=== PATIENT | female | born 1980 | race Caucasian/White ===

== ENCOUNTER → 2016-11-18 | Outpatient (CLI) | payer BC ==
[~2016-11-18] MED LIST: CALCTAB5 PO; GABA-112 PO; NYSTCRE32 TOP; PRENTAB26 PO
[2016-11-18 13:01] LABS: BASO % 0.4 %; BASO ABS # 0.03 K/uL (0-0.2); COMPLETE YES; EOS % 1.4 %; HEMATOCRIT 38.7 % (37-47); IG% 0.3 %; LYMPH % 31.3 %; LYMPH ABS # 2.31 K/uL (1.2-3.4); MEAN CELL VOLUME 81.3 fL (80-100); MEAN CORPUSCULAR HEMOGLOBIN 27.1 pg (25-34); MEAN CORPUSCULAR HGB CONC 33.3 g/dl (32-36); MEAN PLATELET VOLUME 9.4 fL (7.4-10.4); MONO % 5.7 %; NEUT % 60.9 %; PLATELET COUNT 268 K/uL (130-400); RED BLOOD COUNT 4.76 M/uL (4.2-5.4); WHITE BLOOD COUNT 7.37 K/uL (4.8-10.8)
[2016-11-18 13:26] LABS: ALT/SGPT 20 U/L (12-78); AST/SGOT 12 U/L (15-37); BLOOD UREA NITROGEN 9 mg/dl (7-18); BUN/CREATININE RATIO 16.2 (10-20); CALCIUM 8.8 mg/dl (8.5-10.1); CARBON DIOXIDE 27 mmol/L (21-32); CHLORIDE 106 mmol/L (98-107); CREATININE 0.58 mg/dl (0.60-1.20); GLUCOSE 89 mg/dl (70-99); POTASSIUM 3.9 mmol/L (3.5-5.1); SODIUM 142 mmol/L (136-145)
[2016-11-18 13:37] LABS: ALKALINE PHOSPHATASE 109 U/L (45-117); CHOLESTEROL 184 mg/dl (0-200); CHOLESTEROL/HDL RATIO 2.7; HDL CHOLESTEROL 68 mg/dl; LDL CHOLESTEROL CALCULATED 102 mg/dl; TRIGLYCERIDES 69 mg/dl (0-150); VERY LOW DENSITY LIPOPROT CALC 14 mg/dl
[2016-11-18 13:47] LABS: URINE APPEARANCE CLEAR (CLEAR); URINE BILIRUBIN NEG (NEG); URINE COLOR YELLOW; URINE NITRITE NEG (NEG); URINE SPECIFIC GRAVITY 1.018 (1.000-1.030); UROBILINOGEN NEG (NEG)
[2016-11-18 13:57] LABS: MANUAL MICROSCOPIC REQUIRED? NO; REVIEW REQ? NO
== END | disposition home or self-care (01) ==
LOC: C.LABMFLN 10:35
PROVIDERS: ATTEND Family Medicine
DX: Z00.00 Encounter for general adult medical examination without abnormal findings (principal); O24.410 Gestational diabetes mellitus in pregnancy, diet controlled; Z13.220 Encounter for screening for lipoid disorders; Z13.29 Encounter for screening for other suspected endocrine disorder; Z3A.00 Weeks of gestation of pregnancy not specified

== ENCOUNTER → 2017-03-10 | Outpatient (CLI) | payer BC | END | disposition home or self-care (01) | LOC: C.PAPS 15:18 | PROVIDERS: ATTEND Physician Assistant | DX: Z01.419 Encounter for gynecological examination (general) (routine) without abnormal findings (principal) ==

== ENCOUNTER → 2017-07-23 | Outpatient (CLI) | payer BC ==
[~2017-07-23] MED LIST changes: -NYSTCRE32 TOP
[2017-07-23 10:44] LABS: HEMATOCRIT 39.5 % (37-47); MEAN CELL VOLUME 82.6 fL (80-100); MEAN CORPUSCULAR HEMOGLOBIN 27.6 pg (25-34); MEAN CORPUSCULAR HGB CONC 33.4 g/dl (32-36); PLATELET COUNT 257 K/uL (130-400); RED BLOOD COUNT 4.78 M/uL (4.2-5.4); WHITE BLOOD COUNT 10.78 K/uL (4.8-10.8)
== END | disposition home or self-care (01) ==
LOC: C.LAB1850 10:26
PROVIDERS: ATTEND Physician Assistant
DX: N93.9 Abnormal uterine and vaginal bleeding, unspecified (principal)

== ENCOUNTER → 2017-07-23 | Outpatient (CLI) | payer BC ==
--- NOTE | 2017-07-23 14:18 | DIAGNOSTIC IMAGING REPORT ---
PELVIC COMPLETE NON OB HISTORY: 36 years-old Female ABN VAGINAL BLEEDING acute abnormal vaginal bleeding. COMPARISON: None available. TECHNIQUE: Multiple real-time sonographic images of the deep pelvic structures were obtained transabdominal and transvaginally assessing grayscale appearance, color and spectral flow. FINDINGS: TRANSABDOMINAL: Retroflexed uterus measures 8.3 x 4.2 x 4.5 cm. Endometrium measures 0.6 cm. The right ovary measures 3.7 x 2.7 x 3.1 cm. Dominant follicle within the right ovary is seen, 2.7 x 2.0 x 2.5 cm. Arterial inflow is documented within the right ovary. Left ovary measures 2.0 1.8 x 1.8 cm with arterial inflow documented. TRANSVAGINAL: Retroflexed uterus is noted, 7.1 x 4.4 x 4.9 cm. Endometrium measures 0.6 cm. Left ovary measures 2.4 x 1.4 x 2.1 cm with arterial inflow and venous outflow documented. Right ovary measures 3.7 x 2.7 x 3.1 cm with dominant follicle noted measuring up to 2.7 cm. Arterial inflow and venous outflow seen within the right ovary. No significant free pelvic fluid. IMPRESSION: 1. Dominant follicle of the right ovary, 2.7 cm. There is no evidence of ovarian torsion. 2. Unremarkable sonographic appearance of the uterus and endometrium. The above report was generated using voice recognition software. It may contain grammatical, syntax or spelling errors. Electronically signed by: Jero Thomas M.D. 07/23/2017 2:16 PM Dictated Date/Time: 07/23/2017 2:11 PM
== END | disposition home or self-care (01) ==
LOC: C.ULTR 13:07
PROVIDERS: ATTEND Physician Assistant
DX: N93.9 Abnormal uterine and vaginal bleeding, unspecified (principal); N83.8 Other noninflammatory disorders of ovary, fallopian tube and broad ligament

== ENCOUNTER → 2017-07-28 | Outpatient (CLI) | payer BC | END | disposition home or self-care (01) | LOC: C.PATHSPEC 17:14 | PROVIDERS: ATTEND Obstetrics & Gynecology | DX: N93.9 Abnormal uterine and vaginal bleeding, unspecified (principal) ==

== ENCOUNTER → 2017-10-06 | Outpatient (CLI) | payer OTHER ==
[~2017-10-06] MED LIST changes: +BACL10TA PO; +GADAVIST IV PRN
--- NOTE | 2017-10-06 16:22 | DIAGNOSTIC IMAGING REPORT ---
MRI OF THE BRACHIAL PLEXUS COMBO CLINICAL HISTORY: Right shoulder injury. Right shoulder pain. COMPARISON STUDY: MRI of the right shoulder dated 02/26/2017. MRI of the cervical spine dated 03/31/2017. TECHNIQUE: MRI of the brachioplexus is performed utilizing various T1 and T2-weighted sequences in the axial, sagittal, and coronal planes. Contrast-enhanced sequences were acquired following the IV administration of 8.5 cc of Gadavist. FINDINGS: The brachial plexus is normal as visualized bilaterally. No abnormal enhancement, edema or mass lesion is seen. Shotty cervical lymph nodes are incidentally noted. The thyroid gland and the salivary glands are normal as visualized. The imaged brain parenchyma is within normal limits. The regional musculature is normal in bulk and signal intensity. The cervical spine appears intact as imaged. Posterior disc bulges at C5-C6 and C6-C7 eccentric to the left are similar to previous. IMPRESSION: Unremarkable MRI assessment of the brachial plexus. Dictated: 10/06/2017 3:08 PM Transcribed: 10/06/2017 4:21 PM Sandy Electronically signed by: Rian Little M.D. 10/06/2017 4:44 PM Dictated Date/Time: 10/06/2017 3:08 PM
== END | disposition home or self-care (01) ==
LOC: C.MRIBC 13:47
PROVIDERS: ATTEND Psychiatry & Neurology Neurology
DX: G54.0 Brachial plexus disorders (principal)

== ENCOUNTER → 2018-02-25 | Outpatient (CLI) | payer OTHER ==
[~2018-02-25] MED LIST changes: -GADAVIST IV PRN
== END | disposition home or self-care (01) ==
LOC: C.LABMFLN 15:27
PROVIDERS: ATTEND Physician Assistant
DX: L65.9 Nonscarring hair loss, unspecified (principal)

== ENCOUNTER 2024-02-22 08:26 | Observation (INO) ==
--- NOTE | 2024-02-02 13:45 | PAT Medication Instructions ---
Medication Instructions Date of Service February 02, 2024 Home Medications Medication Instructions Recorded albuterol sulfate 90 mcg/actuation 2 inh inhalation QID PRN shortness 02/24/23 aerosol inhaler of breath or wheezing #8.5 grams CPAP Machine #1 ea 06/02/23 buspirone 5 mg tablet 5 mg PO BID #60 tabs 11/20/23 carvedilol 3.125 mg tablet 3.125 mg PO BID #60 tabs 11/20/23 furosemide 20 mg tablet 40 mg (2 x 20 mg) PO QAM #60 tabs 01/22/24 gabapentin 300 mg capsule 300 mg PO TID #90 caps 01/22/24 loratadine 10 mg tablet (Claritin) 10 mg PO QAM ascorbic acid (vitamin C) 500 mg capsule 500 mg PO QAM calcium carbonate 500 mg PO QAM multivitamin 1 tab PO QAM albuterol sulfate 90 mcg/actuation aerosol inhaler 2 inh inhalation QID PRN buspirone 5 mg tablet 5 mg PO BID carvedilol 3.125 mg tablet 3.125 mg PO BID furosemide 20 mg tablet 40 mg (2 x 20 mg) PO QAM gabapentin 300 mg capsule 300 mg PO TID cholecalciferol (vitamin D3) 125 mcg (5,000 unit) tablet (Vitamin D3) 125 mcg PO QPM citalopram 10 mg tablet 10 mg PO QPM meloxicam 15 mg tablet 15 mg PO QAM omeprazole 20 mg capsule,delayed release 20 mg PO QAM ASK your surgeon for instructions meloxicam 15 mg tablet 15 mg PO QAM DO NOT take the morning of surgery loratadine 10 mg tablet (Claritin) 10 mg PO QAM ascorbic acid (vitamin C) 500 mg capsule 500 mg PO QAM calcium carbonate 500 mg PO QAM multivitamin 1 tab PO QAM furosemide 20 mg tablet 40 mg (2 x 20 mg) PO QAM Take morning of surgery With a small sip of water, OTHERWISE NOTHING TO EAT OR DRINK AFTER MIDNIGHT: albuterol sulfate 90 mcg/actuation aerosol inhaler 2 inh inhalation QID PRN(use if needed; please bring with you to hospital day of surgery if possible) buspirone 5 mg tablet 5 mg PO BID carvedilol 3.125 mg tablet 3.125 mg PO BID gabapentin 300 mg capsule 300 mg PO TID omeprazole 20 mg capsule,delayed release 20 mg PO QAM Take evening before surgery albuterol sulfate 90 mcg/actuation aerosol inhaler 2 inh inhalation QID PRN(if needed) buspirone 5 mg tablet 5 mg PO BID carvedilol 3.125 mg tablet 3.125 mg PO BID gabapentin 300 mg capsule 300 mg PO TID cholecalciferol Vitamin D3 125 mcg (5,000 unit) tablet (Vitamin D3) 125 mcg PO QPM citalopram 10 mg tablet 10 mg PO QPM Other Notes If you have any questions please call us at [phone] or [phone] or [phone] or [phone]
--- NOTE | 2024-02-10 14:32 | Anesthesiology Consultation ---
Date of Service February 10, 2024 Assessment & Plan (1) Encounter for pre-operative examination: - Hx difficult intubation: * Laparoscopic Mercedez 01/04/2020. Grade 4 view with DL, glidescope 3, ETT 7.5. "Extreme anterior small mouth opening, narrow space." * Laparoscopic Tubal Sterilization Bilateral (03/21/2022): Grade 1 view with Glidescope#3, ETT 7.0 at [facility], [place] - Infectious disease screening: Per assessment on 02/10/24: No known infectious disease contacts or current infectious disease symptoms. No noted recent Covid positive test result. - Cardiology note (12/07/23): "Low risk.. Patient is cleared for scheduled surgery" - PCP visit (02/12/24): "Labs, EKG, and CXR reviewed. Pt will repeat PTT as slightly elevated, previously normal. If remains elevated, will reach out to kitchen food assembler. Pt was seen with cardiology in November and acquired clearance. She has upcoming visit with pulmonary--will await clearance." - Pulmonary visit (02/18/24): "Continue with the use of as needed albuterol. Symptoms are very well-controlled. She has had a decline in her FEV1 and FVC which may be weight related and due to loss of muscle tone related to nerve impingement from her cervical disc compression. I believe she is low risk patient from a pulmonary perspective to undergo spine surgery on Thursday. No further testing or interventions required prior to surgery. I will order for repeat PFT in approximately 6 months." - Isolated, elevated PTT: Preop labs note elevated PTT at 34. PCP recommended repeat level to determine if anything further needed from their perspective. Received workload response from PCP that they have reached out to patient's kitchen food assembler in regards to elevated PTT. Heme/onc note/response (02/19/24): "Review of patients most recent coagulation studies (02/10/2024 and 02/12/2024) shows minimally elevated aPTT at 34/33. Previous aPTT 01/10/2020 was 30.5. This represents a <1.5% change in baseline aPTT. All other coag studies within normal.. Overall, patient does not have elevated risk of excessive surgical bleeding related to her past medical history and recent coagulation studies." Chart Review Chart Review: Acceptable Risk for Surgery and Patient seen in Pre Admission Testing Teaching & Discussion Pre-Anesthesia Teaching/Discussion Notes: Instructed NPO after midnight before surgery,except medications with 15 cc of water. Medication instructions provided according to the PAT guidelines. History Surgery Operation Date: 02/22/24 10:05 Proposed Procedures p C5-C6 Anterior Cervical Discectomy and Fusion, Spinal Cord Monitoring - Teofilo Granados DO Height/Weight Height: 5 ft 5 in Weight: 107.4 kg Allergies Allergy/AdvReac Type Severity Reaction Status Date / Time adhesive Allergy Severe skin Verified 02/16/24 11:08 redness and blisters duloxetine [From Cymbalta] Allergy Severe hives and Verified 02/16/24 11:08 rash fluconazole [From Diflucan] Allergy Severe Hives Verified 02/16/24 11:08 sulfamethoxazole Allergy Intermediate Hives Verified 02/16/24 11:08 [From Bactrim] trimethoprim [From Bactrim] Allergy Intermediate Hives Verified 02/16/24 11:08 cefuroxime AdvReac Unknown Vomiting Verified 02/16/24 11:08 Cephalosporins AdvReac Unknown Vomiting Verified 02/16/24 11:08 Medications Home Medications Medication Instructions Recorded Confirmed Last Taken loratadine 10 mg tablet (Claritin) 10 mg PO QAM 12/10/20 02/16/24 10/07/22 08:30 ascorbic acid (vitamin C) 500 mg 500 mg PO QAM 03/18/22 02/16/24 10/05/22 capsule calcium carbonate 500 mg PO QAM 03/18/22 02/16/24 10/05/22 multivitamin 1 tab PO QAM 03/18/22 02/16/24 10/05/22 albuterol sulfate 90 mcg/actuation 2 inh inhalation QID PRN shortness 02/24/23 02/16/24 Unknown aerosol inhaler of breath or wheezing #8.5 grams CPAP Machine #1 ea 06/02/23 02/16/24 Unknown furosemide 20 mg tablet 40 mg (2 x 20 mg) PO QAM #60 tabs 01/22/24 02/16/24 Unknown cholecalciferol (vitamin D3) 125 125 mcg PO QPM 01/26/24 02/16/24 Unknown mcg (5,000 unit) tablet (Vitamin D3) omeprazole 20 mg capsule,delayed 20 mg PO QAM 01/26/24 02/16/24 Unknown release citalopram 10 mg tablet 10 mg PO QPM #90 tabs 02/08/24 02/16/24 Unknown buspirone 5 mg tablet 5 mg PO BID #60 tabs 02/15/24 02/16/24 Unknown carvedilol 3.125 mg tablet 3.125 mg PO BID #60 tabs 02/15/24 02/16/24 Unknown gabapentin 300 mg capsule 300 mg PO TID #90 caps 02/16/24 02/16/24 Unknown Past Medical History Medical History (Updated 02/19/24 @ 10:32 by Chelsi Beckford) Allergic asthma Anemia Chronic Cervical spinal stenosis Chronic diarrhea Chronic fatigue Depression Hx r/t loss of infant Fibromyalgia Herniated intervertebral disc of lumbar spine History of cervical incompetence History of skin cancer Pre-cancerous, removed Hypertension Melanoma Hx Osteoarthritis Right shoulder injury ROM limitations + weight lifting restriction Sleep apnea CPAP Exercise / Class Metabolic Activity III < 4 Walking/Shop/Light housework Past Family History Family History Mother Diabetes Endometriosis Hepatitis Ovarian cyst Thyroid disease Tuberculosis Fibroid Grandfather (Paternal) Colorectal cancer Grandmother (Maternal) Hypertension Aunt Cervical cancer Ovarian cancer Father Cancer melanoma- Other Patient's mother is Past Surgical History Surgical History Difficult airway for intubation Laparoscopic Mercedez 01/04/2020. Grade 4 view with DL, glidescope 3, ETT 7.5. "Extreme anterior small mouth opening, narrow space." Laparoscopic Tubal Sterilization Bilateral (03/21/2022): Grade 1 view with Glidescope#3, ETT 7.0 at [facility], [place] H/O dilation and curettage D&E May 2019 History of anesthesia reaction slow to wake History of bilateral tubal ligation History of excision of lesion precancerous moles History of tonsillectomy and adenoidectomy Hx of laparoscopy 2004 S/P laparoscopic cholecystectomy (01/04/20) Laparoscopic Cholecystectomy Dr. Tanner 01-04-2020. Grade 4 view with DL, glidescope 3, ETT 7.5. "Extreme anterior small mouth opening, narrow space." Past Anesthesia History Difficult Airway and Other (slow to wake) Mother- slow to wake, difficulty with intubation History of PONV No Hx of PONV and No Hx of Motion Sickness Social History Smoking Status: Never smoker Do You Dip or Chew Tobacco: No Hx Alcohol Use: No Hx Substance Use: No substance use type: does not use Review of Systems Patient denies chest pain, shortness of breath, dyspnea on exertion, fever, chills, cough, wheezing, palpitations. Physical Exam Vital Signs BP 127/85 P 86 TEMP 97.9 SP02 97%RA RESP 18 Physical Decreased cervical extension range of motion. Full TMJ range of motion. TMD 3 finger breaths Mallampati Score 3 Dentition: intact Lungs: clear throughout to auscultation Cardiac: regular rate and rhythm, no murmurs noted Spine: normal Extremities: no LE edema Lab Results Anesthesia Preop Results Results Anesthesia Widget: WBC 10.54 K/ul (4.8-10.8) 02/10/24 Hgb 12.7 g/dl (12.0-16.0) 02/10/24 Hct 37.6 % (37.0-47.0) 02/10/24 Plt 305 K/uL (130-400) 02/10/24 Na 136 mmol/L (136-145) 02/10/24 K 3.6 mmol/L (3.5-5.1) 02/10/24 Cl 101 mmol/L (98-107) 02/10/24 CO2 29 mmol/L (21-32) 02/10/24 BUN 15 mg/dl (6-23) 02/10/24 Creat 0.72 mg/dl (0.6-1.2) 02/10/24 Glucose Level 91 mg/dl (70-99(Fasting)) 02/10/24 PT 10.3 Seconds (9.0-12.0) 02/10/24 PTT 33 Seconds (21-31) H 02/12/24 INR 0.9 (0.9-1.1) 02/10/24 Urine Color Yellow 02/10/24 Urine Appearance Clear (Clear) 02/10/24 Urine pH 6.0 (4.5-7.5) 02/10/24 Urine Specific [place] 1.016 (1.000-1.030) 02/10/24 Urine Protein Negative (Negative) 02/10/24 Urine Glucose (UA) Negative (Negative) 02/10/24 Urine Ketones Negative (Negative) 02/10/24 Urine Blood Negative (Negative) 02/10/24 Urine Nitrite Negative (Negative) 02/10/24 Urine Bilirubin Negative (Negative) 02/10/24 Urine Urobilinogen Negative (Negative) 02/10/24 Urine Leukocyte Esterase Negative (Negative) 02/10/24 Blood Type A Positive 02/10/24 Antibody Screen NEGATIVE 02/10/24 Testing Electrocardiogram Date: 02/10/24 NSR at 84bpm. "Normal ECG" Chest X-Ray Date: 02/10/24 Findings: + NAD Echocardiogram Date: 10/14/22 EF 60-65%. No RWMA. Grade I DD. No thrombus. No significant valvular disease. No evidence of elevated right heart pressures. Stress Test Date: 11/11/22 Negative exercise stress echo/ECG for ischemia at 92% MPHR. 8 METS. LVEF 65%. Pulmonary Function Test Date: 02/01/24 Nonspecific spirometric findings with a significant postbronchodilator response. Lung volumes are normal. Diffusion capacity is normal.
[~2024-02-22 08:26] MED LIST changes: -BACL10TA PO; -CALCTAB5 PO; -GABA-112 PO; +GABAPENTIN 900 MG DOSE PO SCH; -PRENTAB26 PO
[2024-02-22] MEDS ORDERED: PROPOFOL IV EMULSION 10 MG/ML 20 ML VIAL IV ONE (08:30)
[2024-02-22] MEDS ORDERED: MIDAZOLAM HCL 1 MG/ML 2ML VIAL ONE (08:30)
[2024-02-22] MEDS ORDERED: DEXAMETHASONE SOD INJ 4 MG/ML VIAL ONE (08:30)
[2024-02-22] MEDS ORDERED: LIDOCAINE 2% 2 ML VIAL/AMP(20MG/ML) INFIL ONE (08:30)
[2024-02-22] MEDS ORDERED: fentaNYL citrate PF 100 MCG/2 ML VIAL ONE ×2 (08:30→11:18)
[2024-02-22] MEDS ORDERED: ONDANSETRON INJ 2 MG/ML 2 ML VIAL ONE (08:30)
[2024-02-22] MEDS: LR 15ML/HR IV SCH (08:44)
[2024-02-22] MEDS: LR 60ML/HR IV SCH (08:45)
[2024-02-22] MEDS: CeleBREX 200 MG CAP PO SCH (08:45)
[2024-02-22] MEDS ORDERED: SUCCINYLCHOLINE CHLORIDE 20 MG/ML 10 ML VIAL IV ONE (09:07)
[2024-02-22] MEDS ORDERED: LARYING-O-JET KIT (LTA) ONE (09:07)
[2024-02-22] MEDS ORDERED: ROCURONIUM BROMIDE 10 MG/ML 5 ML VIAL IV ONE (09:07)
[2024-02-22] MEDS: ACETAMINOPHEN 500 MG TAB PO SCH (09:15)
[2024-02-22] MEDS: GABAPENTIN 900 MG DOSE PO SCH (09:18)
[2024-02-22] MEDS ORDERED: Nursing to Pharmacy Communication SCH (09:30)
--- NOTE | 2024-02-22 09:59 | History & Physical Bridge Note ---
Date of Service February 22, 2024 History & Physical Bridge Note I have examined the patient, reviewed the History & Physical and in the interval since the performance of the History & Physical I have noted the following changes of clinical significance: no changes noted
--- NOTE | 2024-02-22 10:00 | History & Physical Report ---
Date of Service February 22, 2024 Assessment & Plan (1) Myelopathy concurrent with and due to spinal stenosis of cervical region: Plan: Anterior cervical discectomy and fusion C5-C6. History of Present Illness Chief Complaint: Neck and arm pain Primary Care Provider: Chela Aparicio DO This is a 43-year-old female presents with chronic persistent neck and arm pain after failing course of nonoperative care is here for surgical invention. Allergies Allergy/AdvReac Type Severity Reaction Status Date / Time adhesive Allergy Severe skin Verified 02/22/24 08:46 redness and blisters duloxetine [From Cymbalta] Allergy Severe hives and Verified 02/22/24 08:46 rash fluconazole [From Diflucan] Allergy Severe Hives Verified 02/22/24 08:46 sulfamethoxazole Allergy Intermediate Hives Verified 02/22/24 08:46 [From Bactrim] trimethoprim [From Bactrim] Allergy Intermediate Hives Verified 02/22/24 08:46 cefuroxime AdvReac Intermediate Vomiting Verified 02/22/24 08:46 Cephalosporins AdvReac Intermediate Vomiting Verified 02/22/24 08:46 Home Medications Medication Instructions Recorded Confirmed Type loratadine 10 mg tablet (Claritin) 10 mg PO QAM 12/10/20 02/22/24 History ascorbic acid (vitamin C) 500 mg 500 mg PO QAM 03/18/22 02/22/24 History capsule calcium carbonate (Oyster Shell 500 mg PO QAM 03/18/22 02/22/24 History Calcium) multivitamin 1 tab PO QAM 03/18/22 02/22/24 History albuterol sulfate 90 mcg/actuation 2 inh inhalation QID PRN shortness 02/24/23 02/22/24 Rx aerosol inhaler of breath or wheezing #8.5 grams CPAP Machine #1 ea 06/02/23 02/16/24 Rx furosemide 20 mg tablet 40 mg (2 x 20 mg) PO QAM #60 tabs 01/22/24 02/22/24 Rx cholecalciferol (vitamin D3) 125 125 mcg PO QPM 01/26/24 02/22/24 History mcg (5,000 unit) tablet (Vitamin D3) omeprazole 20 mg capsule,delayed 20 mg PO QAM 01/26/24 02/22/24 History release buspirone 5 mg tablet 5 mg PO BID #60 tabs 02/15/24 02/22/24 Rx carvedilol 3.125 mg tablet 3.125 mg PO BID #60 tabs 02/15/24 02/22/24 Rx gabapentin 300 mg capsule 300 mg PO TID #90 caps 02/16/24 02/22/24 Rx citalopram 10 mg tablet (Celexa) 10 mg PO QPM 02/22/24 02/22/24 History Past Med/Surg History Medical History (Updated 02/22/24 @ 09:59 by Teofilo Granados DO) Allergic asthma Cervical spinal stenosis Fibromyalgia Osteoarthritis Sleep apnea CPAP Melanoma Hx History of cervical incompetence Chronic fatigue Chronic diarrhea Hypertension Herniated intervertebral disc of lumbar spine Anemia Chronic Depression Hx r/t loss of infant Right shoulder injury ROM limitations + weight lifting restriction History of skin cancer Pre-cancerous, removed Surgical History Difficult airway for intubation Laparoscopic Mercedez 01/04/2020. Grade 4 view with DL, glidescope 3, ETT 7.5. "Extreme anterior small mouth opening, narrow space." Laparoscopic Tubal Sterilization Bilateral (03/21/2022): Grade 1 view with Glidescope#3, ETT 7.0 at [facility] History of bilateral tubal ligation S/P laparoscopic cholecystectomy (01/04/20) Laparoscopic Cholecystectomy Dr. Tanner 01-04-2020. Grade 4 view with DL, glidescope 3, ETT 7.5. "Extreme anterior small mouth opening, narrow space." History of anesthesia reaction slow to wake History of excision of lesion precancerous moles H/O dilation and curettage D&E May 2019 Hx of laparoscopy 2005 History of tonsillectomy and adenoidectomy Family History Mother Diabetes Endometriosis Hepatitis Ovarian cyst Thyroid disease Tuberculosis Fibroid Grandfather (Paternal) Colorectal cancer Grandmother (Maternal) Hypertension Aunt Cervical cancer Ovarian cancer Father Cancer melanoma- Other Patient's mother is Social History Smoking Status: Never smoker Second Hand Exposure: No; Do You Dip or Chew Tobacco: No; Tobacco Cessation Education Requested by Patient: No Hx Alcohol Use: No Hx Substance Use: No Preferred Language: Ug[place]an Communication Ability: Effective Visual Impairment: No Limitations Engine Oiler Required: No Beliefs That Will Affect Care: None marital status: marital status details: Ubaldo (47) [phone] Current Living Situation: Spouse Current Living Situation Comment: lives with spouse, daughter, no pets. current occupational status: employed current occupation: [employer] Other Information That Helps Us Care for You: No Feels Safe at Home: Yes Safety Concerns: Feels Safe At This Time Assistive Devices: CPAP and Glasses Physical Exam Physical Exam: Patient is alert and oriented Heart regular rhythm Lungs clear Results & Data Results & Data Vital Signs (Past 12 Hours) Vital Signs Temp Pulse Resp BP Pulse Ox O2 Del Method 02/22/24 08:54 36.7 C 88 20 141/86 H 100 Room Air
[2024-02-22] MEDS ORDERED: ATROPINE SULFATE 0.1 MG/ML 10ML SYR IV PRN (10:05)
[2024-02-22] MEDS ORDERED: ONDANSETRON INJ 2 MG/ML 2 ML VIAL IV PRN ×2 (10:05→11:54)
[2024-02-22] MEDS ORDERED: ePHEDrine sulfate 50 MG/ML AMP IV PRN (10:05)
[2024-02-22] MEDS: ceFAZolin 2000MG 2,000 MG/15 ML SYR IV SCH (10:34)
[2024-02-22] MEDS ORDERED: SUGAMMADEX SODIUM 200 MG/2 ML VIAL IV ONE (11:37)
[2024-02-22] MEDS: ceFAZolin 330 MG/ML 1 GM VIAL ONE (11:41)
[2024-02-22] MEDS: FLOSEAL HEMOSTATIC MATRIX 10ML TOP ONE (11:42)
--- NOTE | 2024-02-22 11:48 | Operative Report ---
Post Operative Report Pre & Post Diagnosis Operation Date: 02/22/24 10:05 Pre-Op Diagnosis: Myelopathy concurrent with and due to spinal stenosis of cervical region, C5-C6. Cervical spinal stenosis with radiculopathy Morbid obesity Post-Op Diagnosis: Same I identified the patient and participated in the time-out.: Yes Procedure Operation Date: 02/22/24 10:05 Actual Procedures #1 anterior cervical discectomy with bilateral foraminotomies C5-C6. #2 anterior cervical arthrodesis C5-C6. #3 placement of Spira 8 mm cage filled with I factor C5-C6. #4 application of K2 M plate and screws across C5-C6. Surgeon Teofilo Granados, DO Skip Operator Alma Delia Fierro Estimated Blood Loss 10 Findings See Below The patient is 5 foot 5 weighing over 108 kg with BMI in excess of 39. Patient's body habitus did contribute to significant technical difficulty throughout the procedure. This included positioning exposure and the procedure itself requiring our longest retractors and instruments in order to perform her procedure. This at least 50% increased operative time. Subsequently a requesting a 22 modifier. Specimens None Indications This is a 43-year-old female presents above-mentioned diagnosis after failed course of nonoperative care she is here for surgical intervention. Description of Procedure Patient was met with identified informed consent obtained. Patient was then taken to the operative suite underwent patient placed in supine position jacks table with head Cordero head order. All bony prominences well-padded eyes inspected to ensure no external pressure placed upon them. Extra time was taken to adequately position the patient's of the neck could be accessed. It was then prepped and draped in normal sterile fashion. With the assistance of fluoroscopy defy the C5-C6 disc base and a transverse incision was placed along the right anterior aspect of the cervical spine overlying this region. Blunt dissection with the assistance of bipolar electrocautery is then formed down to and exposing the anterior cervical spine at C5-C6. Self-retaining retractors placed. Then performed a complete discectomy of C5-C6 out to the uncovertebral joints bilaterally. Hospers distracting pins utilized to assist in visualization. Removed all posterior fibers longitudinal ligament bilateral foraminotomies were performed. Endplates burred to subcortical bleeding bone and 8 mm Spira cage filled with I factor tapped in position. Distracting eboni aratus was removed and a K2 M plate and screws applied with the assistance of fluoroscopy. The incision was then copiously irrigated explored to ensure no damage to surrounding structures remaining bleeding. 10 round EVA drain inserted. Incision then closed with subcutaneous Vicryl and 4 Monocryl for final skin closure. Steri-Strip sterile dressings placed. Patient awakened and taken to PACU stable condition. Please note spinal cord monitoring was utilized at the procedure no changes noted. Lastly Alma Delia Fierro was present at the entire procedure involved in patient positioning complex portion of the surgery and final skin closure. I attest to the content of the Intraoperative Record and any orders documented therein. Any exceptions are noted below.
[2024-02-22] MEDS ORDERED: bisacodyL 10 MG SUPP PR PRN (11:54)
[2024-02-22] MEDS ORDERED: NALOXONE HCL 0.4 MG/1 ML VIAL/CARP IV PRN (11:54)
[2024-02-22] MEDS ORDERED: RACEPINEPHRINE 2.25% NEBU SOLN 0.5 ML VIAL INH PRN (11:54)
[2024-02-22] MEDS ORDERED: DO NOT ADMINISTER FLU VACCINE PRN (11:54)
[2024-02-22] MEDS ORDERED: LORazepam 0.5 MG TAB PO PRN (11:54)
[2024-02-22] MEDS ORDERED: traMADol HCL 50 MG TABLET PO PRN (11:54)
[2024-02-22] MEDS ORDERED: DO NOT ADMINISTER PNEUMOCOCCAL VACCINE PRN (11:54)
[2024-02-22] MEDS ORDERED: oxyCODONE HCL IR 5 MG TAB (IMMEDIATE RELEASE) PO PRN (11:54)
[2024-02-22] MEDS ORDERED: ACETAMINOPHEN 500 MG TAB PO PRN (11:54)
[2024-02-22] MEDS ORDERED: FAMOTIDINE 20 MG TAB PO PRN (11:54)
[2024-02-22] MEDS ORDERED: HYDROmorphone INJ 1 MG/ML SYRINGE IV PRN (11:54)
[2024-02-22] MEDS ORDERED: ALUMINUM/MAGNESIUM SUSP 30 ML UDC PO PRN (11:54)
[2024-02-22] MEDS ORDERED: HYDROmorphone INJ 0.5 MG/0.5 ML SYR IV PRN (11:54)
[2024-02-22] MEDS ORDERED: hydrOXYzine HCl 25 MG TAB PO PRN (11:54)
[2024-02-22] MEDS ORDERED: SOD PHOSPHATE/SOD BIPHOSPHATE ENEMA 132 ML BTL PR PRN (11:54)
[2024-02-22] MEDS ORDERED: PROMETHAZINE HCL 12.5 MG in SODIUM CHLORIDE 0.9% 50 ML IV PRN (11:54)
[2024-02-22] MEDS ORDERED: MAGNESIUM HYDROXIDE SUSP 30 ML UDC PO PRN (11:54)
[2024-02-22] MEDS ORDERED: LORazepam 0.5 MG in SYRINGE 0.25 ML IV PRN (11:54)
[2024-02-22] MEDS ORDERED: diphenhydrAMINE Capsule 25 MG CAP PO PRN (11:54)
[2024-02-22] MEDS ORDERED: METOCLOPRAMIDE HCL INJ 5 MG/ML 2 ML VIAL IV PRN (11:54)
[2024-02-22] MEDS ORDERED: ONDANSETRON 4 MG OD TAB PO PRN (11:54)
[2024-02-22] MEDS ORDERED: dexAMETHasone 8 MG in SYRINGE 0 ML IV PRN (11:54)
[2024-02-22] MEDS ORDERED: ALBUTEROL HFA 8 GM INHALER INH PRN (11:58)
[2024-02-22] MEDS: fentaNYL citrate PF 100 MCG/2 ML VIAL IV PRN (12:35)
--- NOTE | 2024-02-22 12:38 | Fluoroscopy Report ---
FL cervical 2-3V CLINICAL HISTORY: ACDF C5-C6 COMPARISON STUDY: None. FLUOROSCOPY TIME: 11 seconds FLUOROSCOPY IMAGES: 2 Ka,r: 1.9 mGy FINDINGS: Anterior cervical discectomy and fusion at C5-C6. The hardware appears intact. An endotrach eal tube and surgical drain are noted. IMPRESSION: Fluoroscopic assistance as above. ACT 112: Negative or not required by law. Electronically signed by: Brandon Caldera M.D. 02/22/2024 12:37 PM
--- NOTE | 2024-02-22 13:32 | Anesthesiology Progress Note ---
Date of Service February 22, 2024 Anesthesia Post Procedure Vital Signs Vital Signs: Temp Pulse Pulse Resp BP Pulse Ox O2 Del Method 02/22/24 13:20 86 12 162/88 H 92 Nasal Cannula 02/22/24 13:10 92 H 24 162/95 H 92 Nasal Cannula 02/22/24 13:00 96 H 18 173/75 H 93 Oxymask 02/22/24 12:50 92 H 16 168/95 H 96 Oxymask 02/22/24 12:40 88 24 158/92 H 95 Oxymask 02/22/24 12:30 95 H 24 163/96 H 94 Oxymask 02/22/24 12:20 95 H 24 163/96 H 94 Oxymask 02/22/24 12:10 95 H 24 163/96 H 94 Oxymask 02/22/24 12:01 97.0 F L 90 18 153/98 H 96 Oxymask 02/22/24 08:54 98.1 F 88 20 141/86 H 100 Room Air O2 Flow Rate 02/22/24 13:20 4 02/22/24 13:10 4 02/22/24 13:00 5 02/22/24 12:50 5 02/22/24 12:40 10 02/22/24 12:30 12 02/22/24 12:20 12 02/22/24 12:10 12 02/22/24 12:01 12 02/22/24 08:54 Pain Intensity Neck: Pain Intensity: 4 Transfer of Care Handoff Completed per policy Notes Mental Status: alert / awake / arousable and participated in evaluation Patient Amnestic to Procedure: Yes Nausea / Vomiting: adequately controlled Pain: adequately controlled Airway Patency, RR, SpO2: stable & adequate BP & HR: stable & adequate Hydration State: stable & adequate Anesthetic Complications: no major complications apparent and Pt Satisfied with anesthetic care
[2024-02-22] MEDS: LACTATED RINGER'S 1,000 ML IV SCH (14:10)
[2024-02-22] MEDS: GABAPENTIN 600 MG DOSE PO SCH (14:37)
[2024-02-22] MEDS: GABAPENTIN 300 MG CAP PO SCH (14:47)
[2024-02-22] MEDS: CLINDAMYCIN/D5W 600 MG/50 ML BAG IV SCH (17:17)
[2024-02-22] MEDS: CITALOPRAM 20 MG TAB PO SCH (20:22)
[2024-02-22] MEDS: busPIRone 5 MG TAB PO SCH (20:23)
[2024-02-22] MEDS: CHOLECALCIFEROL 125 MCG (5,000 UNITS) TAB PO SCH (20:23)
[2024-02-22] MEDS: DOCUSATE SODIUM/SENNA 50/8.6MG TAB PO SCH (20:23)
[2024-02-22] MEDS: carvediloL 3.125 MG TAB PO SCH (20:23)
[2024-02-23] MEDS: ACETAMINOPHEN 1,000 MG/100 ML VIAL IV PRN (02:50)
[2024-02-23] MEDS: POLYETHYLENE (MIRALAX) 17 GM PACK PO SCH (06:33)
[2024-02-23] MEDS: ASCORBIC ACID 500 MG TAB PO SCH (08:15)
[2024-02-23] MEDS: FUROSEMIDE 40 MG TAB PO SCH (08:15)
[2024-02-23] MEDS: CALCIUM CARBONATE 1250MG TAB PO SCH (08:15)
[2024-02-23] MEDS: dexAMETHasone 6 MG in SYRINGE 0 ML IV SCH (08:15)
[2024-02-23] MEDS: MULTIVITAMIN TAB PO SCH (08:16)
[2024-02-23] MEDS: PANTOprazole 40 MG TAB PO SCH (08:16)
[2024-02-23] MEDS: LORATADINE 10 MG TAB PO SCH (08:16)
--- NOTE | 2024-02-23 08:33 | Discharge Summary ---
Date of Service February 23, 2024 Admission HPI Per Admitting Provider This is a 43-year-old female presents with chronic persistent neck and arm pain after failing course of nonoperative care is here for surgical invention. Principal Diagnosis Cervical spinal stenosis with myeloradiculopathy Discharge Data Allergies Allergy/AdvReac Type Severity Reaction Status Date / Time adhesive Allergy Severe skin Verified 02/22/24 08:46 redness and blisters duloxetine [From Cymbalta] Allergy Severe hives and Verified 02/22/24 08:46 rash fluconazole [From Diflucan] Allergy Severe Hives Verified 02/22/24 08:46 sulfamethoxazole Allergy Intermediate Hives Verified 02/22/24 08:46 [From Bactrim] trimethoprim [From Bactrim] Allergy Intermediate Hives Verified 02/22/24 08:46 cefuroxime AdvReac Intermediate Vomiting Verified 02/22/24 08:46 Cephalosporins AdvReac Intermediate Vomiting Verified 02/22/24 08:46 Procedures Performed Operation Date: 02/22/24 10:05 Actual Procedures p C5-C6 Anterior Cervical Discectomy and Fusion, Spinal Cord Monitoring - Teofilo Granados DO Ordered Studies 02/22/24 10:05 FL cervical 2-3V Routine Hospital Course (1) Myelopathy concurrent with and due to spinal stenosis of cervical region: Patient underwent anterior cervical discectomy and fusion tolerated this well was taken to the orthopedic for postop bleed. Postoperatively she was swallowing well. No hoarseness. EVA drain decreasing probably. Excellent strength testing. Subsidy discharged home. Discharge orders instructions found in chart for further review. Total Time Total Time Spent Total Time Spent (In Minutes): 20 minutes Discharge Plan Discharge Items Patient Disposition: Home - Self-Care Reason For Visit: Herniation of Intervertebral Disc of Cervical Spin Discharge Diagnosis: Cervical discrimination with radiculopathy Activity: As commented below Non-emergency contact: Primary Care Provider Call non-emergency contact if: you have any medication questions Follow-up/Referrals: Chela Aparicio DO [Primary Care Provider] - Diet: Regular Addtl Attending Provider Instructions: ACTIVITY RECOMMENDATIONS: SELF CARE INSTRUCTIONS AFTER CERVICAL FUSIONS 1. No smoking. Smoking drastically decreases the chance of a solid fusion. 2. No bending, lifting more than 5 pounds, or twisting (roll like a log when turning in bed). 3. You may shower 3 days after surgery. Thoroughly dry wound. Do not soak in the tub. 4. Cervical collar: Must be worn at all times including sleeping. You may remove the brace only to bath, eat and if you are sitting in a recliner. 5. Please walk as much as you can for exercise. Gradually increase the distance that you walk as your endurance increases. SPECIAL CARE INSTRUCTIONS: VERY IMPORTANT TO READ AND REVIEW A. Do not take any anti-inflammatory medications (i.e. Indocin, Advil, Aspirin, Naprosyn, Aleve, Motrin, etc.) as these may inhibit the chance of a solid fusion. Tylenol is okay to take. B. Your surgical incision has been closed with a cosmetic suture under the skin that will dissolve in about 6 weeks. In 14 days, you can use a pair of clean scissors and cut the suture that is left outside of the skin at the ends of your incision. C. Complications are uncommon, but please contact us if you have any signs or symptoms of: 1. wound infection (fever higher than 102.5 degrees F, redness, separation of wound, drainage, or increasing pain from the incision) 2. blood clots in legs (pain, swelling, redness and warmth in legs) 3. urinary tract infection (fever higher than 102.5 degrees, burning upon urination or increased frequency of urination) 4. nerve problems (inability to walk on your toes or heels, numbness, loss of bowel or bladder control) 5. any other symptoms that concern you. D. Please call the office at if you have any concerns or questions about your operation or recovery. MANAGING PAIN AFTER SPINAL SURGERY 1. Narcotic medication is intended for short-term use and will be provided for surgical pain. Surgical pain usually lasts for a period of 4-6 weeks. Narcotic medication includes Percocet, Vicodin, Darvocet, Tylenol #3 or Lortab. 2. Longer-term pain is more appropriately treated with non-narcotic medication such as Tylenol ES. 3. Muscle spasm is not appropriately treated with narcotics. Muscle relaxers such as Soma, Flexeril or Skelaxin can be used along with Tylenol ES. 4. Remember that we all live with some "aches and pains". This is not unusual or uncommon after an injury or as we get older. 5. We will provide appropriate medication within the normal guidelines of their prescribed use. We will also be very cautious and aware of potential abuse and extended duration of patients' medication needs. 6. Please allow 2-3 days to process refills. Prescriptions will not be mailed but must be picked up at the office. FOLLOW UP VISIT: Keep your scheduled follow-up appointment. Any questions, please call the office at . Pending Studies at Discharge: No Stand-Alone Forms: My [facility], Smoking Cessation Medications and DC Order Prescriptions: New tramadol 50 mg tablet 50 mg PO Q6H PRN (Reason: pain, moderate) Qty: 30 0RF oxycodone 5 mg tablet 5 mg PO Q6H PRN (Reason: pain) Qty: 20 0RF Continued furosemide 20 mg tablet 40 mg PO QAM Qty: 60 2RF carvedilol 3.125 mg tablet 3.125 mg PO BID Qty: 60 2RF Rx Instructions: must administer with a meal/food buspirone 5 mg tablet 5 mg PO BID Qty: 60 2RF gabapentin 300 mg capsule 300 mg PO TID Qty: 90 0RF (DME) CPAP Machine Misc See Rx Instructions .Route Qty: 1 0RF Rx Instructions: Auto CPAP 5-20 cm water pressure with heated humidifcation, tubing, and supplies. MONICA: 99+ years. albuterol sulfate 90 mcg/actuation HFA aerosol inhaler 2 inh inhalation QID PRN (Reason: shortness of breath or wheezing) Qty: 8.5 3RF loratadine [Claritin] 10 mg Tablet 10 mg PO QAM multivitamin Tablet 1 tab PO QAM calcium carbonate [Oyster Shell Calcium] 500 mg calcium (1,250 mg) tablet 500 mg PO QAM ascorbic acid (vitamin C) 500 mg capsule 500 mg PO QAM omeprazole 20 mg capsule,delayed release(DR/EC) 20 mg PO QAM cholecalciferol (vitamin D3) [Vitamin D3] 125 mcg (5,000 unit) Tablet 125 mcg PO QPM citalopram [Celexa] 10 mg tablet 10 mg PO QPM Discharge Orders: Discharge Order (Routine); Ordered 02/23/24 Ordered By: Teofilo Granados Admission Data Admit Date/Time: 02/22/24 11:54 Attending Provider: Teofilo Granados Admit Provider: Teofilo Granados Primary Care Provider: Chela Aparicio
== END 2024-02-23 13:34 | disposition home or self-care (01) ==
LOC: 3E 08:26 → ASU 08:26